=== PATIENT | female | born 1935 | race Hispanic/Latino ===

== ENCOUNTER → 2018-01-15 | Outpatient (CLI) | payer OTHER ==
[~2018-01-15] MED LIST: IOPAMIDOL-370 100 ML VIAL IV ONE; ISOVUE-370 50ML VIAL IV ONE
== END | disposition home or self-care (01) ==
LOC: RAH 10:00
PROVIDERS: ATTEND Internal Medicine Cardiovascular Disease
DX: I73.9 Peripheral vascular disease, unspecified (principal); I70.0 Atherosclerosis of aorta; K74.60 Unspecified cirrhosis of liver
CPT/HCPCS: 75635; Q9967 ×2

== ENCOUNTER → 2018-01-26 | Outpatient (CLI) | payer OTHER | END | disposition home or self-care (01) | LOC: SHCH 10:31 | PROVIDERS: ATTEND Internal Medicine Cardiovascular Disease | DX: I48.91 Unspecified atrial fibrillation (principal); I51.7 Cardiomegaly | CPT/HCPCS: 93306 ==

== ENCOUNTER 2018-08-03 21:39 | Inpatient (IN) | payer OTHER ==
[~2018-08-03] VITALS: Ht 160 cm; Wt 75.6 kg
[2018-08-03 22:02] LABS: BASOPHILS % (AUTO) 1.1 % (0.0-5.0); EOSINOPHILS % (AUTO) 1.5 % (0.0-8.0); HEMATOCRIT 39.3 % (36-48); LYMPHOCYTES % (AUTO) 23.2 % (21.0-51.0); MEAN CORPUSCULAR HEMOGLOBIN 26.1 pg (27.0-33.0); MEAN CORPUSCULAR VOLUME 81.6 fL (79-99); MONOCYTES % (AUTO) 5.5 % (3.0-13.0); NEUTROPHILS % (AUTO) 68.7 % (40.0-77.0); PLATELET COUNT (AUTO) 317 K/uL (130-400); RED BLOOD CELL COUNT(AUTO) 4.82 MIL/uL (4.00-5.50); RED CELL DISTRIBUTION WIDTH 14.4 % (11.0-15.5); WHITE BLOOD COUNT (AUTO) 10.2 K/uL (4.8-10.8)
[2018-08-03 22:24] LABS: PARTIAL THROMBOPLASTIN TIME 29.3 SEC (26.3-35.5); PROTHROMBIN TIME 10.5 SEC (9.6-11.6)
[2018-08-03 22:35] LABS: ALBUMIN 3.2 g/dL (3.5-5.0); BILIRUBIN,TOTAL 0.5 mg/dL (0.2-1.0); CREATININE 0.8 mg/dL (0.5-1.5); POTASSIUM 5.3 mmol/L (3.5-5.1); TOTAL PROTEIN, SERUM 7.8 g/dL (6.0-8.3)
[2018-08-04] MEDS ORDERED: LABETALOL HCL 5 MG/ML 20ML VIAL IV ONE (00:50)
[2018-08-04 05:42] VITALS: BP 162/70
[2018-08-04] MEDS ORDERED: DEXTROSE 50%-WATER 50 ML DISP.SYRIN IV PRN (06:15)
[2018-08-04] MEDS ORDERED: GLUCAGON 1MG KIT 1 MG ML IM PRN (06:15)
[2018-08-04 06:35] LABS: BASOPHILS % (AUTO) 0.6 % (0.0-5.0); HEMATOCRIT 37.5 % (36-48); LYMPHOCYTES % (AUTO) 25.1 % (21.0-51.0); MEAN CORPUSCULAR HEMOGLOBIN 26.7 pg (27.0-33.0); MEAN CORPUSCULAR HGB CONC 32.9 g/dL (32.0-36.0); MEAN CORPUSCULAR VOLUME 81.2 fL (79-99); MONOCYTES % (AUTO) 5.4 % (3.0-13.0); NEUTROPHILS % (AUTO) 67.9 % (40.0-77.0); PLATELET COUNT (AUTO) 270 K/uL (130-400); RED BLOOD CELL COUNT(AUTO) 4.62 MIL/uL (4.00-5.50); RED CELL DISTRIBUTION WIDTH 14.1 % (11.0-15.5); WHITE BLOOD COUNT (AUTO) 8.5 K/uL (4.8-10.8)
[2018-08-04 06:49] LABS: ALBUMIN 2.9 g/dL (3.5-5.0); BILIRUBIN,TOTAL 0.5 mg/dL (0.2-1.0); CREATININE 0.9 mg/dL (0.5-1.5); POTASSIUM 4.8 mmol/L (3.5-5.1); TOTAL PROTEIN, SERUM 7.1 g/dL (6.0-8.3)
[2018-08-04 07:22] VITALS: BP 138/58
[2018-08-04] MEDS ORDERED: METO-408 PO (07:57)
[2018-08-04] MEDS ORDERED: RIVA20TA PO (07:57)
[2018-08-04] MEDS ORDERED: RAMI10CA69 PO (07:57)
[2018-08-04] MEDS ORDERED: PANT40TA25 PO (07:57)
[2018-08-04] MEDS ORDERED: METF-444 PO (07:57)
[2018-08-04] MEDS ORDERED: ATOR10 PO (07:57)
[2018-08-04] MEDS: INSULIN HUMULIN R 100 UNIT/ML 3ML SQ SCH ×4 (08:08→21:00)
[2018-08-04] MEDS ORDERED: GADODIAMIDE 10 MMOL/20 ML ML IV ONE (08:33)
[2018-08-04 11:13] VITALS: BP 123/70
[2018-08-04] MEDS: LEVETIRACETAM 500 MG TABLET PO SCH ×2 (13:09→21:52)
[2018-08-04 16:36] VITALS: BP 130/63
[2018-08-04 19:41] VITALS: BP 114/73
[2018-08-04] MEDS: ATORVASTATIN CALCIUM 20 MG TABLET PO SCH (21:51)
[2018-08-04] MEDS: LISINOPRIL 5 MG TABLET PO SCH (21:51)
[2018-08-04] MEDS: ENOXAPARIN SODIUM 80 MG/0.8 ML SQ SCH (21:54)
[2018-08-04 23:51] VITALS: BP 118/90
[2018-08-05] VITALS (8 sets, daily range): BP systolic 133–179; BP diastolic 47–84
[2018-08-05] MEDS: INSULIN HUMULIN R 100 UNIT/ML 3ML SQ SCH ×4 (06:23→22:54)
[2018-08-05 07:49] LABS: HEMATOCRIT 38.8 % (36-48); MEAN CORPUSCULAR HEMOGLOBIN 26.1 pg (27.0-33.0); MEAN CORPUSCULAR HGB CONC 32.2 g/dL (32.0-36.0); MEAN CORPUSCULAR VOLUME 81.3 fL (79-99); PLATELET COUNT (AUTO) 329 K/uL (130-400); RED BLOOD CELL COUNT(AUTO) 4.78 MIL/uL (4.00-5.50); RED CELL DISTRIBUTION WIDTH 14.5 % (11.0-15.5); WHITE BLOOD COUNT (AUTO) 7.7 K/uL (4.8-10.8)
[2018-08-05 07:58] LABS: CREATININE 0.9 mg/dL (0.5-1.5); POTASSIUM 4.3 mmol/L (3.5-5.1)
[2018-08-05] MEDS: LISINOPRIL 5 MG TABLET PO SCH ×2 (09:00→21:51)
[2018-08-05] MEDS: ENOXAPARIN SODIUM 80 MG/0.8 ML SQ SCH ×2 (09:00→21:55)
[2018-08-05] MEDS: LEVETIRACETAM 500 MG TABLET PO SCH ×3 (09:00→21:50)
[2018-08-05] MEDS: ATORVASTATIN CALCIUM 20 MG TABLET PO SCH (21:50)
[2018-08-06] VITALS (12 sets, daily range): BP systolic 98–149; BP diastolic 54–73
[2018-08-06 04:00] LABS: HEMATOCRIT 35.4 % (36-48); MEAN CORPUSCULAR HEMOGLOBIN 25.8 pg (27.0-33.0); MEAN CORPUSCULAR HGB CONC 31.9 g/dL (32.0-36.0); MEAN CORPUSCULAR VOLUME 80.9 fL (79-99); PLATELET COUNT (AUTO) 298 K/uL (130-400); RED BLOOD CELL COUNT(AUTO) 4.38 MIL/uL (4.00-5.50); RED CELL DISTRIBUTION WIDTH 14.1 % (11.0-15.5); WHITE BLOOD COUNT (AUTO) 7.2 K/uL (4.8-10.8)
[2018-08-06 04:22] LABS: ALBUMIN 2.7 g/dL (3.5-5.0); BILIRUBIN,TOTAL 0.4 mg/dL (0.2-1.0); CREATININE 0.9 mg/dL (0.5-1.5); POTASSIUM 3.8 mmol/L (3.5-5.1); TOTAL PROTEIN, SERUM 6.4 g/dL (6.0-8.3)
[2018-08-06] MEDS: INSULIN HUMULIN R 100 UNIT/ML 3ML SQ SCH ×4 (07:30→21:13)
[2018-08-06] MEDS ORDERED: LIDOCAINE HCL-MPF 2% 5ML VIAL ONE (08:21)
[2018-08-06] MEDS ORDERED: NITROGLYCERIN 5 MG/ML 10 ML VIAL IV ONE (08:21)
[2018-08-06] MEDS ORDERED: IOHEXOL-350 50ML VIAL IV ONE (08:21)
[2018-08-06] MEDS ORDERED: IOHEXOL 350 MG/ML 100ML INFUS..BTL IV ONE (08:24)
[2018-08-06] MEDS ORDERED: MIDAZOLAM HCL 1 MG/ML 2ML VIAL ONE (08:49)
[2018-08-06] MEDS ORDERED: FENTANYL CITRATE PF 50 MCG/1 ML 2ML VIAL ONE (08:49)
[2018-08-06] MEDS ORDERED: BIVALIRUDIN 250 MG/VIAL IV ONE (08:56)
[2018-08-06] MEDS ORDERED: MORPHINE SULFATE 4 MG/1ML SYG ONE (09:25)
[2018-08-06] MEDS ORDERED: TICAGRELOR 90 MG TABLET ONE (09:32)
[2018-08-06] MEDS ORDERED: ASPIRIN 81MG TAB.CHEW ONE (09:32)
[2018-08-06] MEDS ORDERED: NITROGLYCERIN 0.4 MG SL TAB SL PRN (09:45)
[2018-08-06] MEDS ORDERED: METOPROLOL TARTRATE 1 MG/ML 5ML VIAL IV PRN (09:45)
[2018-08-06] MEDS ORDERED: ONDANSETRON HCL 4 MG/2 ML VIAL IVP PRN (09:45)
[2018-08-06] MEDS: LEVETIRACETAM 500 MG TABLET PO SCH ×2 (10:26→21:09)
[2018-08-06] MEDS: LISINOPRIL 5 MG TABLET PO SCH ×2 (10:26→21:10)
[2018-08-06] MEDS: ENOXAPARIN SODIUM 80 MG/0.8 ML SQ SCH ×3 (10:27→21:10)
[2018-08-06] MEDS: ACETAMINOPHEN-CODEINE 300/30MG TAB PO PRN (14:29)
[2018-08-06] MEDS: TICAGRELOR 90 MG TABLET PO SCH (21:09)
[2018-08-06] MEDS: ATORVASTATIN CALCIUM 20 MG TABLET PO SCH (21:10)
[2018-08-07] MEDS: ACETAMINOPHEN-CODEINE 300/30MG TAB PO PRN (00:13)
[2018-08-07 03:00] VITALS: BP 112/64
[2018-08-07 04:03] LABS: HEMATOCRIT 28.7 % (36-48); MEAN CORPUSCULAR HEMOGLOBIN 26.2 pg (27.0-33.0); MEAN CORPUSCULAR HGB CONC 32.3 g/dL (32.0-36.0); NUCLEATED RED BLOOD CELLS 0.1 % (0.0-0.19); PLATELET COUNT (AUTO) 312 K/uL (130-400); RED BLOOD CELL COUNT(AUTO) 3.54 MIL/uL (4.00-5.50); RED CELL DISTRIBUTION WIDTH 14.3 % (11.0-15.5); WHITE BLOOD COUNT (AUTO) 7.5 K/uL (4.8-10.8)
[2018-08-07 04:11] LABS: POTASSIUM 4.5 mmol/L (3.5-5.1)
[2018-08-07] MEDS: INSULIN HUMULIN R 100 UNIT/ML 3ML SQ SCH ×2 (06:25→12:25)
[2018-08-07 07:00] VITALS: BP 105/50
[2018-08-07] MEDS ORDERED: ASPIRIN 81MG TAB.CHEW PO SCH (09:00)
[2018-08-07] MEDS ORDERED: PANTOPRAZOLE SODIUM 40 MG TABLET.DR PO SCH (09:00)
[2018-08-07] MEDS: TICAGRELOR 90 MG TABLET PO SCH (10:00)
[2018-08-07] MEDS: LEVETIRACETAM 500 MG TABLET PO SCH (10:00)
[2018-08-07] MEDS: LISINOPRIL 5 MG TABLET PO SCH (10:01)
[2018-08-07] MEDS: ENOXAPARIN SODIUM 80 MG/0.8 ML SQ SCH (10:03)
[2018-08-07] MEDS ORDERED: LEVE500T8 PO (10:56)
[2018-08-07] MEDS ORDERED: METF-445 PO (10:56)
[2018-08-07] MEDS ORDERED: ASPI-1005 PO (10:56)
[2018-08-07] MEDS ORDERED: TICA90TA PO (10:56)
[2018-08-07] MEDS ORDERED: RIVA20TA PO (10:56)
[2018-08-07] MEDS ORDERED: ATOR10 PO (10:56)
[2018-08-07] MEDS ORDERED: GLIP-162 PO (10:56)
[2018-08-07 11:00] VITALS: BP 92/35
== END 2018-08-07 14:59 | disposition home or self-care (01) | DRG 246 ==
LOC: EDH 21:39 → EDHIP 23:50 → 2DH 08-04 05:02
PROVIDERS: ADMIT Hospitalist; ATTEND Hospitalist
PROC: B2151ZZ Fluoroscopy of Left Heart using Low Osmolar Contrast (ICD-10-PCS; principal; 2018-08-06)
PROC: 027034Z Dilation of Coronary Artery, One Artery with Drug-eluting Intraluminal Device, Percutaneous Approach (ICD-10-PCS; 2018-08-06)
PROC: B2111ZZ Fluoroscopy of Multiple Coronary Arteries using Low Osmolar Contrast (ICD-10-PCS; 2018-08-06)
PROC: 4A023N7 Measurement of Cardiac Sampling and Pressure, Left Heart, Percutaneous Approach (ICD-10-PCS; 2018-08-06)
DX: I21.4 Non-ST elevation (NSTEMI) myocardial infarction (principal); I50.21 Acute systolic (congestive) heart failure; G40.209 Localization-related (focal) (partial) symptomatic epilepsy and epileptic syndromes with complex partial seizures, not intractable, without status epilepticus; I48.1 Persistent atrial fibrillation; D68.59 Other primary thrombophilia; I48.91 Unspecified atrial fibrillation; I10 Essential (primary) hypertension; E78.5 Hyperlipidemia, unspecified; I25.10 Atherosclerotic heart disease of native coronary artery without angina pectoris; E11.51 Type 2 diabetes mellitus with diabetic peripheral angiopathy without gangrene; I11.0 Hypertensive heart disease with heart failure; I25.2 Old myocardial infarction; I48.0 Paroxysmal atrial fibrillation; Z79.01 Long term (current) use of anticoagulants; Z79.82 Long term (current) use of aspirin; Z79.84 Long term (current) use of oral hypoglycemic drugs; Z85.3 Personal history of malignant neoplasm of breast; Z90.12 Acquired absence of left breast and nipple
CPT/HCPCS: 36415; 70450; 70553; 71045; 80048; 80053; 82550; 82948; 83874; 84484; 85025; 85027; 85610; 85730; 93005; 93306; 93458; 95819; 99156; 99157; A9579; C1760; C1769; C1887; C1894; C9600; J0583; J1644; J1650; J1815; J2250; J2270; J3010; J3490; Q9967

== ENCOUNTER → 2018-08-13 | Outpatient (CLI) | payer OTHER ==
[~2018-08-13] MED LIST changes: +ASPI-1005 PO; +ATOR10 PO; +FURO40TA7 PO; +GLIP-162 PO; -IOPAMIDOL-370 100 ML VIAL IV ONE; -ISOVUE-370 50ML VIAL IV ONE; +LEVE500T8 PO; +METF-445 PO; +METO-408 PO; +PANT40TA25 PO; +POTA-81 PO; +RAMI10CA69 PO; +RIVA20TA PO; +TICA90TA PO
[2018-08-13 13:09] LABS: BASOPHILS % (AUTO) 0.7 % (0.0-5.0); EOSINOPHILS % (AUTO) 6.9 % (0.0-8.0); HEMATOCRIT 25.2 % (36-48); LYMPHOCYTES % (AUTO) 21.1 % (21.0-51.0); MEAN CORPUSCULAR HGB CONC 32.4 g/dL (32.0-36.0); MEAN CORPUSCULAR VOLUME 83.4 fL (79-99); MONOCYTES % (AUTO) 6.3 % (3.0-13.0); PLATELET COUNT (AUTO) 446 K/uL (130-400); RED BLOOD CELL COUNT(AUTO) 3.03 MIL/uL (4.00-5.50); RED CELL DISTRIBUTION WIDTH 15.1 % (11.0-15.5); WHITE BLOOD COUNT (AUTO) 8.3 K/uL (4.8-10.8)
[2018-08-13 13:19] LABS: POTASSIUM 4.6 mmol/L (3.5-5.1)
== END | disposition home or self-care (01) ==
LOC: RAH 11:31
PROVIDERS: ATTEND Internal Medicine Cardiovascular Disease
DX: S70.11XA Contusion of right thigh, initial encounter (principal); M79.81 Nontraumatic hematoma of soft tissue; X58.XXXA Exposure to other specified factors, initial encounter; Y93.89 Activity, other specified; Y92.89 Other specified places as the place of occurrence of the external cause; Y99.8 Other external cause status
CPT/HCPCS: 36415; 76882; 80048; 85025

== ENCOUNTER 2018-08-15 14:49 | Inpatient (IN) | payer OTHER ==
[~2018-08-15] VITALS: Ht 154.9 cm; Wt 76.6 kg
[~2018-08-15 14:49] MED LIST changes: -FURO40TA7 PO; -POTA-81 PO
[2018-08-15 15:14] LABS: BASOPHILS % (AUTO) 0.4 % (0.0-5.0); EOSINOPHILS % (AUTO) 4.6 % (0.0-8.0); HEMATOCRIT 26.2 % (36-48); LYMPHOCYTES % (AUTO) 23.1 % (21.0-51.0); MEAN CORPUSCULAR HGB CONC 32.3 g/dL (32.0-36.0); MEAN CORPUSCULAR VOLUME 83.6 fL (79-99); MONOCYTES % (AUTO) 4.9 % (3.0-13.0); PLATELET COUNT (AUTO) 495 K/uL (130-400); RED BLOOD CELL COUNT(AUTO) 3.13 MIL/uL (4.00-5.50); RED CELL DISTRIBUTION WIDTH 15.7 % (11.0-15.5)
[2018-08-15 15:26] LABS: CREATININE 0.9 mg/dL (0.5-1.5)
[2018-08-15 15:29] LABS: INR 0.95 (0.85-1.15); PARTIAL THROMBOPLASTIN TIME 26.9 SEC (26.3-35.5)
[2018-08-15 15:31] LABS: BILIRUBIN,TOTAL 1.6 mg/dL (0.2-1.0); TOTAL PROTEIN, SERUM 7.4 g/dL (6.0-8.3)
[2018-08-15 15:47] LABS: B-TYPE NATRIURETIC PEPTIDE 795 pg/mL (0-100)
[2018-08-15] MEDS ORDERED: IOHEXOL 350 MG/ML 100ML INFUS..BTL IV ONE (18:09)
[2018-08-15] MEDS ORDERED: FUROSEMIDE 10 MG/ML 4ML VIAL ONE (19:59)
[2018-08-15] MEDS ORDERED: GLUCAGON 1MG KIT 1 MG ML IM PRN (20:30)
[2018-08-15] MEDS ORDERED: DEXTROSE 50%-WATER 50 ML DISP.SYRIN IV PRN (20:30)
[2018-08-15] MEDS ORDERED: ONDANSETRON HCL 4 MG/2 ML VIAL IV PRN (20:30)
[2018-08-15] MEDS ORDERED: ACETAMINOPHEN 325 MG TAB PO PRN (20:30)
[2018-08-15] MEDS: INSULIN HUMULIN R 100 UNIT/ML 3ML SQ SCH (21:00)
[2018-08-15] MEDS: FUROSEMIDE 10 MG/ML 4ML VIAL IVP SCH (21:00)
[2018-08-15 21:01] VITALS: BP 111/56
[2018-08-15 21:04] VITALS: BP 151/55
[2018-08-16 01:13] LABS: APPEARANCE,URINE Clear (CLEAR); BILIRUBIN,URINE Negative (NEGATIVE); COLOR,URINE Yellow (YELLOW); GLUCOSE, URINE (UA) Negative (NEGATIVE); KETONES,URINE Negative (NEGATIVE); LEUKOCYTE ESTERASE ,URINE Negative (NEGATIVE); NITRATE,URINE Negative (NEGATIVE); OCCULT BLOOD,URINE Negative (NEGATIVE); PROTEIN,URINE Negative (NEGATIVE)
[2018-08-16 01:19] VITALS: BP 140/61
[2018-08-16 05:06] LABS: HEMATOCRIT 23.5 % (36-48); MEAN CORPUSCULAR HEMOGLOBIN 27.1 pg (27.0-33.0); MEAN CORPUSCULAR HGB CONC 32.7 g/dL (32.0-36.0); MEAN CORPUSCULAR VOLUME 82.7 fL (79-99); PLATELET COUNT (AUTO) 427 K/uL (130-400); RED BLOOD CELL COUNT(AUTO) 2.84 MIL/uL (4.00-5.50); RED CELL DISTRIBUTION WIDTH 15.6 % (11.0-15.5)
[2018-08-16 05:10] LABS: HEMOGLOBIN A1C 9.2 % (4.0-6.0)
[2018-08-16 05:15] LABS: ALBUMIN 2.8 g/dL (3.5-5.0); BILIRUBIN,TOTAL 1.4 mg/dL (0.2-1.0); MAGNESIUM 1.2 mg/dL (1.80-2.40); POTASSIUM 3.8 mmol/L (3.5-5.1); TOTAL PROTEIN, SERUM 6.8 g/dL (6.0-8.3)
[2018-08-16 05:18] LABS: B-TYPE NATRIURETIC PEPTIDE 697 pg/mL (0-100)
[2018-08-16 05:39] VITALS: BP 140/53
[2018-08-16] MEDS: INSULIN HUMULIN R 100 UNIT/ML 3ML SQ SCH ×4 (06:19→21:00)
[2018-08-16] MEDS: MAGNESIUM 2GM PREMIX 50ML 50 ML IV PRN ×3 (08:40→22:51)
[2018-08-16 08:43] VITALS: BP 148/58
[2018-08-16] MEDS: METFORMIN HCL 850 MG TABLET PO SCH ×2 (09:00→16:54)
[2018-08-16] MEDS: TICAGRELOR 90 MG TABLET PO SCH ×2 (09:00→22:43)
[2018-08-16] MEDS ORDERED: LISINOPRIL 40 MG TABLET PO SCH (09:00)
[2018-08-16] MEDS: ASPIRIN 81MG TAB.CHEW PO SCH (09:00)
[2018-08-16] MEDS: GLIPIZIDE XL 5MG TAB PO SCH ×2 (09:00→09:02)
[2018-08-16] MEDS: FUROSEMIDE 10 MG/ML 4ML VIAL IVP SCH ×2 (09:01→22:43)
[2018-08-16] MEDS: PANTOPRAZOLE SODIUM 40 MG TABLET.DR PO SCH (09:01)
[2018-08-16] MEDS: METOPROLOL TARTRATE 25 MG TAB PO SCH ×2 (09:01→22:44)
[2018-08-16] MEDS: LEVETIRACETAM 500 MG TABLET PO SCH ×2 (09:01→22:43)
[2018-08-16] MEDS ORDERED: LISINOPRIL 20 MG TABLET ONE (09:05)
[2018-08-16 11:43] VITALS: BP 123/54
[2018-08-16 12:58] LABS: CREATINE KINASE, TOTAL 22 U/L (21-232); MYOGLOBIN 32 ng/mL (10-92); TROPONIN I < 0.04 ng/mL (0.00-0.06)
[2018-08-16 16:04] VITALS: BP 108/49
[2018-08-16 19:00] VITALS: BP 111/60
[2018-08-16] MEDS: ATORVASTATIN CALCIUM 10 MG TABLET PO SCH (22:43)
[2018-08-17] VITALS (7 sets, daily range): BP systolic 113–139; BP diastolic 35–70
[2018-08-17 05:01] LABS: CREATININE 1.1 mg/dL (0.5-1.5); MAGNESIUM 1.9 mg/dL (1.80-2.40); POTASSIUM 3.2 mmol/L (3.5-5.1)
[2018-08-17] MEDS ORDERED: POTASSIUM CHLORIDE 10MEQ/100ML 100 ML IV PRN (07:00)
[2018-08-17] MEDS ORDERED: POTASSIUM CHLORIDE 20 MEQ ERTAB PO PRN (07:00)
[2018-08-17] MEDS ORDERED: LIDOCAINE HCL-MPF 1% 2ML VIAL IVP PRN (07:00)
[2018-08-17] MEDS ORDERED: POTASSIUM CHLORIDE 10% ELIXIR 20 MEQ/15 ML UDCUP PO PRN (07:00)
[2018-08-17] MEDS: MAGNESIUM 2GM PREMIX 50ML 50 ML IV PRN (08:19)
[2018-08-17] MEDS: ASPIRIN 81MG TAB.CHEW PO SCH (08:22)
[2018-08-17] MEDS: LEVETIRACETAM 500 MG TABLET PO SCH ×2 (08:22→20:47)
[2018-08-17] MEDS: METFORMIN HCL 850 MG TABLET PO SCH ×2 (08:22→18:52)
[2018-08-17] MEDS: METOPROLOL TARTRATE 25 MG TAB PO SCH (08:22)
[2018-08-17] MEDS: GLIPIZIDE XL 5MG TAB PO SCH (08:27)
[2018-08-17] MEDS: LISINOPRIL 10 MG TABLET PO SCH (08:28)
[2018-08-17] MEDS: FERROUS SULFATE 325 MG TABLET.DR PO SCH ×2 (08:31→20:47)
[2018-08-17] MEDS: PANTOPRAZOLE SODIUM 40 MG TABLET.DR PO SCH (08:31)
[2018-08-17] MEDS: TICAGRELOR 90 MG TABLET PO SCH ×2 (08:33→20:47)
[2018-08-17] MEDS: POTASSIUM CHLORIDE 20 MEQ ERTAB PO SCH (08:34)
[2018-08-17] MEDS: INSULIN HUMULIN R 100 UNIT/ML 3ML SQ SCH ×4 (08:38→20:47)
[2018-08-17] MEDS ORDERED: FURO40TA7 PO (08:42)
[2018-08-17] MEDS ORDERED: POTA-81 PO (08:42)
[2018-08-17] MEDS: FUROSEMIDE 40 MG TABLET PO SCH (08:44)
[2018-08-17] MEDS ORDERED: CLOPIDOGREL BISULFATE 75 MG TAB PO SCH (09:00)
[2018-08-17] MEDS ORDERED: LACTULOSE 20 GM/30 ML UDCUP PO PRN (17:15)
[2018-08-17] MEDS: ATORVASTATIN CALCIUM 10 MG TABLET PO SCH (20:47)
[2018-08-18 03:00] VITALS: BP 130/57
[2018-08-18 05:50] LABS: MAGNESIUM 1.9 mg/dL (1.80-2.40); POTASSIUM 3.7 mmol/L (3.5-5.1)
[2018-08-18] MEDS: INSULIN HUMULIN R 100 UNIT/ML 3ML SQ SCH ×2 (06:04→11:30)
[2018-08-18] MEDS: METFORMIN HCL 850 MG TABLET PO SCH (07:40)
[2018-08-18] MEDS: GLIPIZIDE XL 5MG TAB PO SCH (07:41)
[2018-08-18 07:48] VITALS: BP 135/61
[2018-08-18] MEDS: POTASSIUM CHLORIDE 20 MEQ ERTAB PO SCH (08:07)
[2018-08-18] MEDS: LEVETIRACETAM 500 MG TABLET PO SCH (08:08)
[2018-08-18] MEDS: LISINOPRIL 10 MG TABLET PO SCH (08:08)
[2018-08-18] MEDS: TICAGRELOR 90 MG TABLET PO SCH (08:08)
[2018-08-18] MEDS: FUROSEMIDE 40 MG TABLET PO SCH (08:08)
[2018-08-18] MEDS: ASPIRIN 81MG TAB.CHEW PO SCH (08:08)
[2018-08-18] MEDS: FERROUS SULFATE 325 MG TABLET.DR PO SCH (08:08)
[2018-08-18] MEDS: PANTOPRAZOLE SODIUM 40 MG TABLET.DR PO SCH (08:08)
[2018-08-18 11:09] VITALS: BP 136/55
[2018-08-18 15:36] VITALS: BP 114/53
== END 2018-08-18 16:50 | disposition home or self-care (01) | DRG 292 ==
LOC: EDH 14:49 → EDHIP 19:35 → 3AH 20:17
PROVIDERS: ADMIT Internal Medicine; ATTEND Internal Medicine
DX: I11.0 Hypertensive heart disease with heart failure (principal); G40.209 Localization-related (focal) (partial) symptomatic epilepsy and epileptic syndromes with complex partial seizures, not intractable, without status epilepticus; E44.1 Mild protein-calorie malnutrition; I48.1 Persistent atrial fibrillation; I50.43 Acute on chronic combined systolic (congestive) and diastolic (congestive) heart failure; E11.65 Type 2 diabetes mellitus with hyperglycemia; E07.9 Disorder of thyroid, unspecified; S30.1XXA Contusion of abdominal wall, initial encounter; I25.5 Ischemic cardiomyopathy; I48.2 Chronic atrial fibrillation; E83.42 Hypomagnesemia; E11.51 Type 2 diabetes mellitus with diabetic peripheral angiopathy without gangrene; S70.10XA Contusion of unspecified thigh, initial encounter; E66.9 Obesity, unspecified; R22.1 Localized swelling, mass and lump, neck; E78.5 Hyperlipidemia, unspecified; I25.10 Atherosclerotic heart disease of native coronary artery without angina pectoris; X58.XXXA Exposure to other specified factors, initial encounter; I25.2 Old myocardial infarction; Z68.31 Body mass index [BMI] 31.0-31.9, adult; Z79.01 Long term (current) use of anticoagulants; Z79.82 Long term (current) use of aspirin; Z79.84 Long term (current) use of oral hypoglycemic drugs; Z79.899 Other long term (current) drug therapy; Z85.3 Personal history of malignant neoplasm of breast; Z95.5 Presence of coronary angioplasty implant and graft; Z86.73 Personal history of transient ischemic attack (TIA), and cerebral infarction without residual deficits; Z90.12 Acquired absence of left breast and nipple; Y93.89 Activity, other specified; Y92.89 Other specified places as the place of occurrence of the external cause; Y99.8 Other external cause status
CPT/HCPCS: 36415; 71045; 71275; 76536; 76882; 80048; 80053; 81003; 82550; 82948; 83036; 83735; 83874; 83880; 84132; 84484; 85025; 85027; 85610; 85730; 93005; J1815; J1940; J3475; Q9967

== ENCOUNTER → 2019-08-18 | Outpatient (CLI) | payer OTHER ==
[~2019-08-18] MED LIST changes: +FURO40TA7 PO; +LEVE-43 PO; -LEVE500T8 PO; -METO-408 PO; +POTA-81 PO; -RIVA20TA PO
== END | disposition home or self-care (01) ==
LOC: SHCH 09:53
PROVIDERS: ATTEND Internal Medicine Cardiovascular Disease
DX: I34.0 Nonrheumatic mitral (valve) insufficiency (principal)
CPT/HCPCS: 93306

== ENCOUNTER 2019-08-19 13:23 | Emergency (ER) | payer OTHER | END 2019-08-19 14:22 | disposition left against medical advice (07) | LOC: EDH 13:23 | DX: I10 Essential (primary) hypertension (principal); I48.91 Unspecified atrial fibrillation; I48.92 Unspecified atrial flutter; E78.5 Hyperlipidemia, unspecified; E11.9 Type 2 diabetes mellitus without complications; Z85.3 Personal history of malignant neoplasm of breast | CPT/HCPCS: 71045; 93005 ==

== ENCOUNTER → 2019-09-16 | Outpatient (CLI) | payer OTHER | END | disposition home or self-care (01) | LOC: RAH 14:50 | PROVIDERS: ATTEND Internal Medicine Medical Oncology | DX: R92.2 Inconclusive mammogram (principal); E11.9 Type 2 diabetes mellitus without complications; I10 Essential (primary) hypertension; E78.5 Hyperlipidemia, unspecified; I48.91 Unspecified atrial fibrillation; Z85.3 Personal history of malignant neoplasm of breast | CPT/HCPCS: 77065 ==

== ENCOUNTER → 2020-04-24 | Outpatient (CLI) | payer OTHER ==
--- NOTE | 2020-04-18 11:09 | NUR ---
PROCEDURE DATE WAS MOVED TO 04/24/20
[~2020-04-24] MED LIST changes: +REGADENOSON 0.4 MG/5 ML PF SYG IVP SCH
== END | disposition home or self-care (01) ==
LOC: SHCH 09:06
PROVIDERS: ATTEND Internal Medicine Cardiovascular Disease
DX: I20.9 Angina pectoris, unspecified (principal); R07.1 Chest pain on breathing
CPT/HCPCS: 78452; 93017; 96374; A9500 ×2; J2785

== ENCOUNTER → 2021-08-02 | Outpatient (CLI) | payer MEDICARE ==
[~2021-08-02] MED LIST changes: -PANT40TA25 PO; +PANT40TA54 PO; -REGADENOSON 0.4 MG/5 ML PF SYG IVP SCH
== END | disposition home or self-care (01) ==
LOC: SHCH 09:55
PROVIDERS: ATTEND Internal Medicine Cardiovascular Disease
DX: I27.20 Pulmonary hypertension, unspecified (principal); I35.8 Other nonrheumatic aortic valve disorders; I48.0 Paroxysmal atrial fibrillation; R55 Syncope and collapse
CPT/HCPCS: 93306

== ENCOUNTER 2021-08-17 06:55 | Day surgery (SDC) | payer MEDICARE ==
[2021-08-15 16:52] LABS: BASOPHILS % (AUTO) 0.6 % (0.0-5.0); EOSINOPHILS % (AUTO) 3.6 % (0.0-8.0); HEMATOCRIT 37.3 % (36-48); LYMPHOCYTES % (AUTO) 27.5 % (21.0-51.0); MEAN CORPUSCULAR HEMOGLOBIN 25.2 pg (27.0-33.0); MONOCYTES % (AUTO) 6.9 % (3.0-13.0); NEUTROPHILS % (AUTO) 61.1 % (40.0-77.0); PLATELET COUNT (AUTO) 397 K/uL (130-400); RED BLOOD CELL COUNT(AUTO) 4.44 MIL/uL (4.00-5.50); RED CELL DISTRIBUTION WIDTH 14.1 % (11.0-15.5)
[2021-08-15 17:06] LABS: CREATININE 0.8 mg/dL (0.5-1.5); POTASSIUM 4.7 mmol/L (3.5-5.1)
[2021-08-15 17:09] LABS: PROTHROMBIN TIME 10.9 SEC (9.6-11.6)
[2021-08-15 17:11] LABS: PARTIAL THROMBOPLASTIN TIME 27.6 SEC (26.3-35.5)
[~2021-08-17] VITALS: Ht 162.6 cm; Wt 83.1 kg
[2021-08-17] VITALS (8 sets, daily range): BP systolic 118–186; BP diastolic 54–78
[~2021-08-17 06:55] MED LIST changes: +0.9%NACL 1000ML 1,000 ML IV ONE; +AMLO-257 PO; -ASPI-1005 PO; -ATOR10 PO; +ATOR20TA65 PO; +CEFAZOLIN SODIUM 1 GM VIAL IVP SCH; +CLOP75TA32 PO; -FURO40TA7 PO; -GLIP-162 PO; +GLIP5TAB11 PO; -LEVE-43 PO; +METF-444 PO; -METF-445 PO; -PANT40TA54 PO; -POTA-81 PO; -TICA90TA PO
[2021-08-17] MEDS ORDERED: MIDAZOLAM HCL 1 MG/ML 2ML VIAL ONE ×2 (09:57→10:33)
[2021-08-17] MEDS ORDERED: BUPIVACAINE/PF 0.25% 30ML VIAL IJ ONE (09:57)
[2021-08-17] MEDS ORDERED: MEPERIDINE-PF 50 MG/ML SYG ONE (09:58)
[2021-08-17] MEDS ORDERED: LIDOCAINE HCL 1% MDV 50ML VIAL ONE (09:58)
[2021-08-17] MEDS ORDERED: IODIXANOL 320 MG/ML 100 ML VIAL ONE (10:09)
[2021-08-17] MEDS ORDERED: TRAM50TA4 PO (11:49)
[2021-08-17] MEDS ORDERED: ACETAMINOPHEN WITH CODEINE 1 TAB TAB PO PRN (12:00)
== END 2021-08-17 15:45 | disposition home or self-care (01) ==
LOC: DAH 06:55
PROVIDERS: ATTEND Internal Medicine Cardiovascular Disease
DX: I49.5 Sick sinus syndrome (principal); Z20.822 Contact with and (suspected) exposure to COVID-19; I44.1 Atrioventricular block, second degree; I48.0 Paroxysmal atrial fibrillation; I10 Essential (primary) hypertension; E11.9 Type 2 diabetes mellitus without complications; E78.5 Hyperlipidemia, unspecified; I25.10 Atherosclerotic heart disease of native coronary artery without angina pectoris; E66.01 Morbid (severe) obesity due to excess calories; Z79.84 Long term (current) use of oral hypoglycemic drugs; Z79.82 Long term (current) use of aspirin; Z79.899 Other long term (current) drug therapy; Z98.890 Other specified postprocedural states; Z95.5 Presence of coronary angioplasty implant and graft; Z90.12 Acquired absence of left breast and nipple; Z85.3 Personal history of malignant neoplasm of breast; Z68.31 Body mass index [BMI] 31.0-31.9, adult
CPT/HCPCS: 33208; 36415; 71045; 80048; 82948 ×2; 85025; 85610; 85730; 93005; A4215; A4216; A4222; A4223 ×3; A4606; A4663; A6260; C1785; C1898 ×2; J0690; J2175; J2250 ×2; J3490 ×2; J7030; Q9967; 99156; 99157

== ENCOUNTER → 2022-03-25 | Outpatient (CLI) | payer MEDICARE ==
[~2022-03-25] MED LIST changes: -0.9%NACL 1000ML 1,000 ML IV ONE; -CEFAZOLIN SODIUM 1 GM VIAL IVP SCH; +TRAM50TA4 PO
== END | disposition home or self-care (01) ==
LOC: RAH 13:49
PROVIDERS: ATTEND Internal Medicine
DX: E04.2 Nontoxic multinodular goiter (principal)
CPT/HCPCS: 76536

== ENCOUNTER → 2022-04-03 | Outpatient (CLI) | payer MEDICARE ==
[2022-04-03 12:41] LABS: ALBUMIN 2.8 g/dL (3.5-5.0); BILIRUBIN,DIRECT 0.2 mg/dL (0.0-0.3); BILIRUBIN,TOTAL 0.4 mg/dL (0.2-1.0)
== END | disposition home or self-care (01) ==
LOC: LAB 10:52
PROVIDERS: ATTEND Internal Medicine Cardiovascular Disease
DX: I20.0 Unstable angina (principal)
CPT/HCPCS: 36415; 80076

== ENCOUNTER → 2022-10-11 | Outpatient (CLI) | payer MEDICARE ==
[~2022-10-11] MED LIST changes: +REGADENOSON 0.4 MG/5 ML PF SYG IVP SCH
== END | disposition home or self-care (01) ==
LOC: SHCH 09:37
PROVIDERS: ATTEND Internal Medicine Cardiovascular Disease
DX: I44.7 Left bundle-branch block, unspecified (principal); R07.9 Chest pain, unspecified; R06.02 Shortness of breath; R06.09 Other forms of dyspnea
CPT/HCPCS: 78452; 96374; 93017; J2785; A9500 ×2

== ENCOUNTER → 2024-03-19 | Outpatient (CLI) | payer MEDICARE ==
[~2024-03-19] MED LIST changes: -GLIP5TAB11 PO; +GLIP5TAB15 PO; -REGADENOSON 0.4 MG/5 ML PF SYG IVP SCH
[2024-03-19 15:19] LABS: BASOPHILS # (AUTO) 0.03 K/uL (0.00-0.20); BASOPHILS % (AUTO) 0.3 % (0.0-5.0); EOSINOPHILS # (AUTO) 0.22 K/uL (0.00-0.70); EOSINOPHILS % (AUTO) 2.2 % (0.0-8.0); HEMATOCRIT 33.5 % (36-48); IMMATURE GRANULOCYTE ABSOLUTE 0.04 K/uL (0-1); LYMPHOCYTES # (AUTO) 1.5 K/uL (1.0-4.8); LYMPHOCYTES % (AUTO) 15.2 % (21.0-51.0); MEAN CORPUSCULAR HGB CONC 32.8 g/dL (32.0-36.0); MEAN CORPUSCULAR VOLUME 79.2 fL (79-99); MONOCYTES # (AUTO) 0.5 K/uL (0.1-1.0); MONOCYTES % (AUTO) 4.6 % (3.0-13.0); NEUTROPHILS # (AUTO) 7.6 K/uL (1.8-7.7); NEUTROPHILS % (AUTO) 77.3 % (40.0-77.0); PLATELET COUNT (AUTO) 242 K/uL (130-400); RED BLOOD CELL COUNT(AUTO) 4.23 MIL/uL (4.00-5.50); WHITE BLOOD COUNT (AUTO) 9.9 K/uL (4.8-10.8)
[2024-03-19 15:33] LABS: ALBUMIN 2.4 g/dL (3.5-5.0); BILIRUBIN,TOTAL 2.8 mg/dL (0.2-1.0); CREATININE 1.3 mg/dL (0.5-1.0); POTASSIUM 4.9 mmol/L (3.5-5.1); TOTAL PROTEIN, SERUM 7.9 g/dL (6.0-8.3)
[2024-03-19 15:46] LABS: APPEARANCE,URINE CLEAR (CLEAR); BILIRUBIN,URINE MODERATE mg/dL (NEGATIVE); COLOR,URINE YELLOW (YELLOW); GLUCOSE, URINE (UA) 100 mg/dL (NEGATIVE); KETONES,URINE 5 mg/dL (NEGATIVE); LEUKOCYTE ESTERASE ,URINE TRACE Leu/uL (NEGATIVE); NITRATE,URINE NEGATIVE (NEGATIVE); OCCULT BLOOD,URINE NEGATIVE (NEGATIVE); PROTEIN,URINE 100 mg/dL (NEGATIVE); UROBILINOGEN,URINE >=8.0 mg/dL (0.2-1.0)
[2024-03-19 15:47] LABS: ADD UA MICROSCOPIC YES; B-TYPE NATRIURETIC PEPTIDE 239 pg/mL (0-100)
[2024-03-19 15:53] LABS: BACTERIA,URINE FEW /HPF (None Seen); MUCUS,URINE FEW LPF (None Seen); SQUAMOUS EPITHELIAL CELL,UR MANY /HPF (0-2)
== END | disposition home or self-care (01) ==
LOC: LAB 12:42
PROVIDERS: ATTEND Internal Medicine Cardiovascular Disease
DX: I20.0 Unstable angina (principal)
CPT/HCPCS: 36415; 80053; 81001; 83880; 84145; 84484; 85025; 85378

== ENCOUNTER → 2024-04-24 | Outpatient (CLI) | payer MEDICARE ==
[~2024-04-24] MED LIST changes: -RAMI10CA69 PO; +RAMI10CA76 PO
== END | disposition home or self-care (01) ==
LOC: SHCH 09:40
PROVIDERS: ATTEND Internal Medicine Cardiovascular Disease
DX: I82.409 Acute embolism and thrombosis of unspecified deep veins of unspecified lower extremity (principal); I87.1 Compression of vein; I87.2 Venous insufficiency (chronic) (peripheral); I25.110 Atherosclerotic heart disease of native coronary artery with unstable angina pectoris; I48.0 Paroxysmal atrial fibrillation; I49.5 Sick sinus syndrome; I70.213 Atherosclerosis of native arteries of extremities with intermittent claudication, bilateral legs; I11.9 Hypertensive heart disease without heart failure; E11.9 Type 2 diabetes mellitus without complications; E78.5 Hyperlipidemia, unspecified; Z95.0 Presence of cardiac pacemaker; Z79.899 Other long term (current) drug therapy
CPT/HCPCS: 93970

== ENCOUNTER → 2024-06-07 | Outpatient (CLI) | payer MEDICARE ==
[2024-06-07 12:54] LABS: CREATININE 1.2 mg/dL (0.5-1.0); POTASSIUM 4.7 mmol/L (3.5-5.1)
== END | disposition home or self-care (01) ==
LOC: LAB 11:31
PROVIDERS: ATTEND Internal Medicine Cardiovascular Disease
DX: I25.110 Atherosclerotic heart disease of native coronary artery with unstable angina pectoris (principal)
CPT/HCPCS: 36415; 80048

== ENCOUNTER → 2024-06-16 | Outpatient (CLI) | payer MEDICARE ==
[~2024-06-16] MED LIST changes: +IOHEXOL 350 MG/ML 100ML INFUS..BTL IV ONE; +METOPROLOL TARTRATE 1 MG/ML 5ML VIAL IV ONE
== END | disposition home or self-care (01) ==
LOC: RAH 12:44
PROVIDERS: ATTEND Internal Medicine Cardiovascular Disease
DX: I25.10 Atherosclerotic heart disease of native coronary artery without angina pectoris (principal); K44.9 Diaphragmatic hernia without obstruction or gangrene; J90 Pleural effusion, not elsewhere classified
CPT/HCPCS: 75574; J3490 ×2; Q9967